=== PATIENT | female | born 1995 | race Caucasian/White ===

== ENCOUNTER → 2023-07-21 10:38 | Outpatient (CLI) | payer OTHER, MEDICAID, SELFPAY ==
[2023-07-21 13:03] LABS: Add Manual Diff / Slide Review NO; Basophils Absolute Auto 0 /uL (0-100); Basophils Percent Auto 0.4 % (0-2); Eosinophils Absolute Auto 200 /uL (0-450); Eosinophils Percent Auto 2.2 % (2-4); Hematocrit 39.5 % (36-46); Hemoglobin 13.5 g/dL (12.0-16.0); Lymphocytes Absolute Auto 1100 /uL (1100-4500); Lymphocytes Percent Auto 12.2 % (25-40); Mean Corpuscular HGB Conc 34.2 % (30-36); Mean Corpuscular Hemoglobin 32.5 PG (26-34); Mean Corpuscular Volume 94.8 fL (80-100); Monocytes Absolute Auto 700 /uL (0-900); Monocytes Percent Auto 7.5 % (3-14); Neutrophils Absolute Auto 7000 /uL (1500-7000); Neutrophils Percent Auto 77.7 % (50-75); Platelet Count 244 X10^3/uL (150-400); Red Blood Cell Count 4.17 X10^6/uL (4.0-5.2); Red Cell Distribution Width 12.7 % (11.6-14.8)
[2023-07-21 20:44] LABS: Urine N gonorrhoeae NOT DETECTED
[2023-07-21 21:40] LABS: Urine Chlamydia NOT DETECTED
[2023-07-22 07:40] LABS: RPR Screen Non Reactive (Non Reactive)
[2023-07-22 09:12] LABS: Varicella IgG Antibody 547 index (Immune >165)
[2023-07-22 20:46] LABS: Hepatitis B Surface Antigen NEGATIVE s/c (NEGATIVE); Rubella Antibody IgG 9.7 IU/mL (>15)
[2023-07-22 21:01] LABS: HIV 1 & 2 Ab/Ag 4th Gen Combo NEGATIVE (NEGATIVE); Hep C Virus Ab w/Reflex Quant NEGATIVE s/c (NEGATIVE)
== END ==
PROVIDERS: Student in an Organized Health Care Education/Training Program; PCP Family Medicine; Referring Provider Nurse Practitioner Psychiatric/Mental Health; Visit Provider Nurse Practitioner Psychiatric/Mental Health
DX: Z34.01 Encounter for supervision of normal first pregnancy, first trimester (principal)
CPT/HCPCS: 36415; 80055; 86787; 86803; 86850; 86900; 86901; 87086; 87389; 87491; 87591

== ENCOUNTER → 2023-08-28 08:34 | Outpatient (CLI) | payer OTHER, MEDICAID, SELFPAY ==
[2023-08-30 20:36] LABS: AFP Value 24.2 ng/mL (.); Gest Age on Col Date 16.1 weeks (.); Insulin Dep Diabetes No (.); OSBR Risk 1IN 10000 (.); Results Report (.); Test Results *Screen Negative* (.)
== END ==
PROVIDERS: PCP Family Medicine; Referring Provider Student in an Organized Health Care Education/Training Program; Visit Provider Student in an Organized Health Care Education/Training Program
DX: Z34.02 Encounter for supervision of normal first pregnancy, second trimester (principal); Z3A.16 16 weeks gestation of pregnancy
CPT/HCPCS: 36415; 82105

== ENCOUNTER → 2023-09-24 14:15 | Outpatient (CLI) | payer OTHER, MEDICAID, SELFPAY ==
--- NOTE | 2023-09-24 14:16 | DI.US.S_ITS ---
PROCEDURE: US OB >= 14 WEEKS FETUS INDICATIONS: 20 week anatomy scan OUTSIDE/PRIOR DATING DATA: Last menstrual period (LMP): May 06, 2023. LMP-based estimated date of delivery (LETHA): February 11, 2024. First dating scan (date and location): July 21, 2023, [facility]. Estimated date of delivery (LETHA) from first dating scan: February 06, 2024 TECHNIQUE: Real-time scanning was performed of the fetus, with image documentation and biometric measurements. Endovaginal scanning: Not performed COMPARISON: None. FINDINGS: General: A single living intrauterine gestation is present. Presentation: Breech. Placenta: Placental position is anterior , without previa. Amniotic fluid index: 16.6 cm, normal range is 5-24 cm. Single deepest vertical pocket is 4.9 cm. heart rate: 133 beats per minute. Maternal cervical canal: 2.9 cm long. Normal lower limit is 2.5 cm. biometrics: Biparietal diameter: 4.7 cm, 20 weeks 1 day Head circumference: 17.7 cm, 20 weeks 1 day Abdominal circumference: 15.0 cm, 20 weeks 2 days Femur length: 3.2 cm, 19 weeks 6 days Clinically estimated gestational age: 20 weeks 0 days Composite gestational age from present scan: 20 weeks 1 day Estimated weight and percentile: 332 g, 51% Anatomic survey: Neuro: Ventricles are non-dilated at less than 10 mm. Cisterna magna is normal at 3-11 mm. Cerebellum is normal in size and morphology. Nuchal skin fold: Normal at less than 6 mm between 14-21 weeks gestational age. Face: Nose and lips, facial profile are normal. Spine: No evidence for spina bifida. Heart: 4-chambered heart is present, with normal ventricular outflow tracts. Diaphragm: Diaphragm is intact. Stomach: Left-sided stomach is present. Kidneys: No hydronephrosis. Normal is less than 5 mm in 2nd trimester, less than 7 mm in 3rd trimester. Cord: 3-vessel cord has orthotopic insertion. Bladder: Normal in size. Extremities: All 4 extremities identified. IMPRESSION: Single live intrauterine gestation with a composite gestational age of 20 weeks, 1 day which is concordant with dates by initial scan. No sonographic anatomic abnormalities. We strive to produce accurate, complete, and clear reports of imaging services. To assist us in improving patient care, this report was composed using standard report templates and voice recognition software. Therefore, it may contain abnormal punctuation, insertions and/or omissions. Occasional wrong-word or sound-alike substitutions may occur. Though we review the report and make efforts to correct it, we do recommend that the report be read carefully in proper context to recognize any text inaccuracies. Dictated by: Karolina Blum M.D. on 09/24/2023 at 17:03 Approved by: Karolina Blum M.D. on 09/24/2023 at 17:07
== END ==
LOC: US 14:15
PROVIDERS: PCP Family Medicine; Referring Provider Student in an Organized Health Care Education/Training Program; Visit Provider Student in an Organized Health Care Education/Training Program
DX: Z36.89 Encounter for other specified antenatal screening (principal); Z3A.20 20 weeks gestation of pregnancy
CPT/HCPCS: 76811

== ENCOUNTER → 2023-11-10 11:59 | Outpatient (CLI) | payer OTHER, MEDICAID, SELFPAY ==
[2023-11-10 14:09] LABS: Hematocrit 36.4 % (36-46); Hemoglobin 12.4 g/dL (12.0-16.0)
[2023-11-10 14:37] LABS: GTT (PREG) 1 Hour PP 50gm Dose 92 mg/dL (76-139)
== END ==
LOC: LAB 12:02
PROVIDERS: PCP Family Medicine; Referring Provider Student in an Organized Health Care Education/Training Program; Visit Provider Student in an Organized Health Care Education/Training Program
DX: Z34.92 Encounter for supervision of normal pregnancy, unspecified, second trimester (principal); Z3A.26 26 weeks gestation of pregnancy
CPT/HCPCS: 36415; 82950; 85014; 85018

== ENCOUNTER → 2023-12-11 14:49 | Outpatient (CLI) | payer OTHER, MEDICAID, SELFPAY | PROVIDERS: PCP Family Medicine; Referring Provider Student in an Organized Health Care Education/Training Program; Visit Provider Student in an Organized Health Care Education/Training Program | DX: Z34.00 Encounter for supervision of normal first pregnancy, unspecified trimester (principal) | CPT/HCPCS: 36415; 86695; 86696 ==

== ENCOUNTER → 2024-01-19 11:42 | Outpatient (CLI) | payer OTHER, MEDICAID, SELFPAY ==
[2024-01-20 15:15] LABS: Strep Grp B PCR POS for Grp B Strep
== END ==
PROVIDERS: PCP Family Medicine; Visit Provider Student in an Organized Health Care Education/Training Program
DX: Z34.00 Encounter for supervision of normal first pregnancy, unspecified trimester (principal); Z3A.36 36 weeks gestation of pregnancy
CPT/HCPCS: 87653

== ENCOUNTER 2024-01-27 20:50 | Inpatient (IN) | payer OTHER, MEDICAID, SELFPAY ==
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
[2024-01-27 21:20] VITALS: BP 131/70; PULSE 76; TEMP 35.5
[2024-01-27] MEDS: AMPICILLIN 2,000 MG in SODIUM CHLORIDE 0.9% 100 ML 200 MG IV (21:20)
[2024-01-27 21:22] LABS: Add Manual Diff / Slide Review NO; Basophils Absolute Auto 100 /uL (0-100); Basophils Percent Auto 0.8 % (0-2); Eosinophils Absolute Auto 100 /uL (0-450); Eosinophils Percent Auto 0.6 % (2-4); Hematocrit 40.7 % (36-46); Hemoglobin 13.5 g/dL (12.0-16.0); Lymphocytes Absolute Auto 1700 /uL (1100-4500); Lymphocytes Percent Auto 11.1 % (25-40); Mean Corpuscular HGB Conc 33.1 % (30-36); Mean Corpuscular Hemoglobin 31.3 PG (26-34); Mean Corpuscular Volume 94.5 fL (80-100); Monocytes Absolute Auto 1200 /uL (0-900); Monocytes Percent Auto 7.7 % (3-14); Neutrophils Absolute Auto 12600 /uL (1500-7000); Neutrophils Percent Auto 79.8 % (50-75); Platelet Count 228 X10^3/uL (150-400); Red Blood Cell Count 4.31 X10^6/uL (4.0-5.2); White Blood Cell Count 15.8 X10^3/uL (4.5-11.0)
--- NOTE | 2024-01-27 22:38 | P.PCNOB_ITS ---
Events: Meconium Stained Fluid Labor & Delivery Delivery date: 01/27/24 Delivery monitor: external FHT Route of delivery: L&D Laceration Description: Perineal - 2nd Degree Delivery repair: vicryl Quantitative Blood Loss: 365 Anesthesia Type: Local Complications: none Narrative: The patient progressed to C/C/+2 without anesthesia. After approximately 20min of maternal pushing efforts, the infant delivered in OA position and restituted ROT. The anterior shoulder delivered with gentle downward pressure. The posterior shoulder and rest of body delivered with ease. The cord was doubly clamped and cut after a 60sec delay with the infant placed on maternal abdomen. The placenta delivered spontaneously and was intact with a 3-vessel cord. The fundus was noted to be firm with bimanual massage and pitocin. Inspection of the cervix, vagina, and perineum was notable for a 2nd degree perineal laceration and a right labial laceration. Repair was performed using 3- 0 Vicryl in a running, unlocked fashion. Skin was reapproximated in a running, subcuticular fashion. At the end of the repair, all tissues noted to be hemostatic. All sponges were removed from the vagina. The patient tolerated delivery well and remained in the labor room with the at the bedside. [place] Baby 1: gender: Male Presentation: vertex Placenta delivery description: Spontaneous Cord Vessel Description: 3 Vessels score (1 min): 9 score (5 min): 9 weight: 7 lb 9.342 oz Plan for aftercare: Routine care
--- NOTE | 2024-01-27 22:40 | PM.AN.REGBLK ---
Regional Block Pre-procedure Procedure: Continuous Lumbar Epidural for L&D Attending OB provider: Genia Oshea PMH/ROS narrative: Healthy requesting epidural for labor. Admitted at 9cm. PSH/Anesthesia history narrative: Tonsillectomy Exam narrative: Negative assessment. Exercise induced asthma. Called for epidural at 2109. 2130 labs back, consented for procedure. ASA Class: II Labs: Hct 40.7 % (36-46) 01/27/24 21:00 Plt Count 228 X10^3/uL (150-400) 01/27/24 21:00 Medications: Current Medications Generic Name Dose Route Start Last Admin Trade Name Freq PRN Reason Stop Dose Admin Carboprost Tromethamine 250 mcg 01/27/24 20:58 Carboprost 250 Mcg/Ml Ampul IM Q90M PRN Bleeding Oxytocin/Lactated Ringer's 30 unit in 500 mls @ 200 mls/hr 01/27/24 20:58 Oxytocin Premix IV CONT PRN Bleeding Protocol Tranexamic Acid 1,000 mg/ 100 mls @ 600 mls/hr 01/27/24 20:58 Sodium Chloride IV NOW PRN Bleeding Ampicillin Sodium 1,000 mg/ 100 mls @ 200 mls/hr 01/28/24 01:00 Sodium Chloride IV Q4H MIKEY Lactated Ringer's 1,000 mls @ 100 mls/hr 01/27/24 21:00 Lactated Ringers IV CONT MIKEY Lidocaine HCl 20 ml 01/27/24 20:58 Lidocaine 1% 20 Ml INJ INTRA-OP PRN Post Delivery Methylergonovine Maleate 0.2 mg 01/27/24 20:58 Methylergonovine 0.2 Mg Tablet PO Q6HR PRN Heavy Bleeding Methylergonovine Maleate 0.2 mg 01/27/24 20:58 Methylergonovine 0.2 Mg/Ml Vial IM NOW PRN Bleeding Misoprostol 800 mcg 01/27/24 20:58 Misoprostol 200 Mcg Tablet SC NOW PRN Bleeding Misoprostol 400 mcg 01/27/24 20:58 Misoprostol 200 Mcg Tablet SL NOW PRN Bleeding Naloxone HCl 0.2 mg 01/27/24 20:58 Naloxone 0.4 Mg/Ml Vial IV Q2MIN PRN Opiate Reversal Ondansetron HCl 4 mg 01/27/24 20:58 Ondansetron 4 Mg/2 Ml Inj IV Q4HR PRN Nausea And Vomiting Oxytocin 10 unit 01/27/24 20:58 Oxytocin 10 Unit/Ml Vial IM NOW PRN Bleeding Allergies: Allergies Allergy/AdvReac Type Severity Reaction Status Date / Time No Known Drug Allergies Allergy Unverified 01/27/24 08:26 --: Pt sitting for epidural placement. Sterile prep/drape. Chloroprep, 1% xylo L3-4 Unable to access epidural space. Bone uncountered with needle redirection x2. L4-5 1%Xylo unable to access epidural space. Bone encountered with one needle redirection. Pt stated she felt like she needed to push and procedure aborted. Pt delivered without anesthesia. 18g Hustead used. Procedure Prep/Local: 1% lidocaine (chloroprep) Patient position: sitting Needle: 18 gauge Hustead Insertion: No CSF, No Blood, No Paresthesia with insertion, No Paresthesia with injection and No Test dose reaction Post-procedure Anesthesia date START: 01/27/24 Anesthesia time START: 21:30 Anesthesia date END: 01/27/24 Anesthesia time END: 21:55 Post-procedure Anesthesia Assessment: Yes CV function: HR/BP stable, Yes Resp function: RR/sat/airway adequate, Yes Post-op hydration adequate, Yes Pain control adequate, Yes Nausea & vomiting absent, Yes Temperature > 36 C and Yes Mental status appropriate
[2024-01-27] MEDS: KETOROLAC 30 MG/ML VIAL IV (23:10)
[2024-01-27] MEDS: ACETAMINOPHEN 325 MG TABLET 650 MG PO (23:10)
[2024-01-27] MEDS: OXYTOCIN PREMIX 30 UNIT/500 ML PLAST..BAG 200 UNIT IV (23:12)
[2024-01-28] MEDS: ACETAMINOPHEN 325 MG TABLET 650 MG PO ×3 (06:02→18:03)
[2024-01-28] MEDS: WITCH HAZEL/GLYCERIN PADS 1 EACH TOP (06:02)
[2024-01-28] MEDS: IBUPROFEN 600 MG TABLET PO ×3 (06:02→18:03)
--- NOTE | 2024-01-28 08:49 | P.PNOB_ITS ---
Subjective - OB Subjective Patient comments: no complaints and pain well controlled [place] baby status: doing well [place] feeding status: exclusively breast feeding Date Patient Seen: 01/28/24 Time Patient Seen: 08:15 Interval history: Pt resting comfortably in bed, in bassinet at bedside. Denies pain, dysuria. GHULAM since delivery per RN Exam Vital Signs (past 8 hours): BP 97/59 HR 86 T 98.3 Const General: cooperative and healthy appearing Nutritional Appearance: average body habitus Orientation: alert, awake and oriented x3 Limitations: mental status not altered Resp Effort & Inspection: normal respiratory effort Cardio Pulses: normal peripheral pulses GI Inspection: normal to inspection Palpation: soft Other: fundus firm < umb, non-tender Other: deferred Skin General: no rashes or lesions noted Neuro General: patient alert, patient awake and patient oriented x3 Extrem General: normal to inspection Psych Mental Status: mental status grossly normal Objective Labs 01/27/24 21:00 Labs: Laboratory Results - last 24 hr 01/27/24 01/27/24 21:00 21:09 WBC 15.8 H RBC 4.31 Hgb 13.5 Hct 40.7 MCV 94.5 MCH 31.3 MCHC 33.1 RDW 14.0 Plt Count 228 Neut % (Auto) 79.8 H Lymph % (Auto) 11.1 L [place] % (Auto) 7.7 Eos % (Auto) 0.6 L Baso % (Auto) 0.8 Neut # (Auto) 28519 H Lymph # (Auto) 1700 [place] # (Auto) 1200 H Eos # (Auto) 100 Baso # (Auto) 100 Blood Type O Positive Antibody Screen Negative Assessment & Plan Plan day: 1 plan OB: routine care Comments: 28yo PPD1 s/p LBMI routine care , support PRN unsure regarding contraception, readdress prior to discharge PNL as per admission, advanced cervical dilation with progression to delivery rapidly on admission with inadequate GBS treatment anticipate dc to home PPD2 pending clearance per peds Time-Based Coding :: [20] spent with patient and on the chart (including review of chart, obtaining history, exam, reviewing outside data, placing orders, documenting exam and treatment plan, and counseling patient) on [01/28/24].
[2024-01-28] MEDS: PRENATAL VIT,CALC/IRON/FOLIC 1 TABLET 1 TAB PO (09:10)
[2024-01-28] MEDS: DOCUSATE 100 MG CAPSULE PO (09:10)
[2024-01-29] MEDS: ACETAMINOPHEN 325 MG TABLET 650 MG PO ×3 (02:12→14:09)
[2024-01-29] MEDS: IBUPROFEN 600 MG TABLET PO ×3 (02:12→14:09)
--- NOTE | 2024-01-29 08:08 | P.DS_ITS ---
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 She progressed quickly without augmentation or anesthesia, and delivered a viable male . Her course was uncomplicated. On day #2, she was ambulating, tolerating regular diet, voiding spontaneously with minimal lochia. Her pain was well controlled with oral medications, thus she was discharged to home on day #2. Peripartum Data Infant Delivery Method: Natural Vaginal Laceration Description: Perineal - 2nd Degree Procedures: External monitoring Spontaneous vaginal delivery Perineal laceration repair complications: none Discharge Diagnosis (1) Vaginal delivery: Status: Acute (2) Group B Streptococcus carrier state affecting : Status: Acute (3) Excessive weight gain affecting : Status: Acute (4) Herpes simplex infection in : Status: Acute (5) Rubella non-immune status, antepartum: Status: Acute (6) Cervical dysplasia affecting : Status: Acute Status at Discharge Cognitive/behavioral status at discharge: oriented Functional status at discharge: independent ambulation Overall status at discharge: patient is progressing back to baseline Time Spent with Patient Time attestation: Total time spent providing and/or coordinating discharge services: Time spent: Less than 30 minutes Objective Labs 01/27/24 21:00 Exam Vital Signs (past 8 hours): vitals reviewed in OBIX, within normal parameters Const General: cooperative, healthy appearing, comfortable and No acute distress Resp Effort & Inspection: normal respiratory effort GI Inspection: normal to inspection Other: fundus firm and nontender at U-2 Skin General: no rashes or lesions noted Neuro General: patient alert and patient awake Extrem General: normal to inspection, no pedal edema and no calf tenderness Psych Mood: congruent mood Affect: normal affect Discharge Plan Discharge Plan Patient Disposition: Home Provider Discharge Comment: Take ibuprofen 600mg every 6hrs and/or acetaminophen 650mg every 6hrs as needed for pain. Avoid placing anything in the vagina for 6 weeks. Discharge orders & Medications Prescriptions: Continued clindamycin phosphate 1 % lotion 1 applic topical BID Qty: 60 0RF vit-ferrous sulfat-FA 27 mg iron- 0.8 mg tablet PO Discontinued pantoprazole [Protonix] 40 mg tablet,delayed release (DR/EC) 40 mg PO DAILY Qty: 60 1RF acyclovir 400 mg tablet 400 mg PO TID Qty: 60 0RF Rx Instructions: start at 36wks gestational age Follow up/Referrals: Marcia Figueroa DO [Physician] - (2 week telehealth appt w/ Dr. Figueroa: February 09 @ 4:30pm 6 week Appt w/ Dr. Figueroa: March 09 @ 11:30am) Diet/Activity/Treatments Diet: Diet as Tolerated Activity: As tolerated. Skin/Wound/Dressing Care Report to your healthcare provider any signs of infection, such as:: chills, fever, increased pain, unusual drainage and unusual redness Visit Report/Discharge Packet Instructions: DI for Labor and Delivery, Vaginal Stand Alone Forms: Discharge: Care, Patient Portal/API, Stroke Signs & Symptoms Discharge Data Primary Care Provider: Adia Dodge
[2024-01-29 14:01] VITALS: BP 114/72; PULSE 83; RESP 15; TEMP 36.7
== END 2024-01-29 15:45 | disposition home or self-care (01) | DRG 560 ==
PROVIDERS: Admitting Provider Student in an Organized Health Care Education/Training Program; PCP Family Medicine; Referring Provider Student in an Organized Health Care Education/Training Program; Visit Provider Student in an Organized Health Care Education/Training Program
DX: O99.824 Streptococcus B carrier state complicating childbirth (principal); O70.1 Second degree perineal laceration during delivery; Z3A.37 37 weeks gestation of pregnancy; Z37.0 Single live birth
CPT/HCPCS: 36415; 59050; 85025; 86850; 86900; 86901; G0379; J0290; J1885; J2590